=== PATIENT | male | born 1995 ===

== ENCOUNTER 2017-03-29 22:06 | Emergency (ER) | payer SELFPAY ==
[2017-03-29 22:18] VITALS: BP 150/80; PULSE 78; RESP 18; TEMP 98.4; O2SAT 100
[2017-03-29] MEDS ORDERED: Lidocaine 1% Inj (20ml) ONE (22:44)
[2017-03-29] MEDS ORDERED: Lidocaine 1% (10 ml) Inj INFIL STA (22:48)
[2017-03-29] MEDS ORDERED: TDAP Vaccine 0.5 mL Syr IM ONE (22:48)
--- NOTE | 2017-03-29 22:50 | ED PDOC ---
HPI: Wound Care - HPI Time Seen by Provider: 03/29/17 22:20 Chief Complaint (Nursing): Finger,Hand,&Wrist Chief Complaint (Provider): Left 4th digit swelling, cut 2 weeks ago with metal History Per: Patient Exam Limitations: no limitations Onset/Duration Of Symptoms: Days Current Symptoms Are (Timing): Still Present Quality Of Symptoms: Painful Severity: Moderate Pain Scale Rating Of: 5 Additional Complaint(s): Unknown tetanus. PT did not see a provider at time of injury. PT reports increase localized pain and swelling over the last week. Past Medical History Reviewed: Historical Data, Nursing Documentation, Vital Signs Vital Signs: Last Vital Signs Temp 98.4 F 03/29/17 22:16 Pulse 78 03/29/17 22:16 Resp 18 03/29/17 22:16 BP 150/80 03/29/17 22:16 Pulse Ox 100 03/29/17 22:16 - Medical History PMH: No Chronic Diseases - Surgical History Surgical History: No Surg Hx - Family History Family History: States: Unknown Family Hx - Living Arrangements Living Arrangements: With Family - Social History Current smoker - smoking cessation education provided: No Alcohol: None Drugs: Denies - Home Medications Home Medications: Ambulatory Orders Medication Instructions Recorded Amoxicillin/Clavulanate [Augmentin 1 tab PO BID #20 tab 03/29/17 875 MG-125 MG] - Allergies Allergies/Adverse Reactions: Allergies Allergy/AdvReac Type Severity Reaction Status Date / Time No Known Allergies Allergy Verified 03/29/17 22:15 Review of Systems ROS Statement: Except As Marked, All Systems Reviewed And Found Negative Skin: Positive for: Other Physical Exam - Reviewed Nursing Documentation Reviewed: Yes Vital Signs Reviewed: Yes - Physical Exam Appears: Positive for: Well, Non-toxic, No Acute Distress Head Exam: Positive for: ATRAUMATIC, NORMAL INSPECTION, NORMOCEPHALIC Skin: Positive for: Warm. Negative for: Normal Color ((+) soft fluctulant abscess, left posterior 4th digit ) Eye Exam: Positive for: Normal appearance ENT: Positive for: Normal ENT Inspection Neck: Positive for: Normal, Painless ROM Respiratory: Negative for: Accessory Muscle Use Back: Positive for: Normal Inspection Extremity: Positive for: Normal ROM. Negative for: Tenderness, Deformity, Swelling Neurologic/Psych: Positive for: Alert, Oriented - ECG O2 Sat by Pulse Oximetry: 100 Procedure: Wound Repair - Consent Obtained Consent obtained: Verbal - Performed by Performed by: Attending Physician - Indications Indication(s):: Incision wound - Location Location:: Left Finger:: Ring - Anesthetic Technique Anesthetic Technique: Local Local/Regional Anesthetic:: Lidocaine 1% (1cc) - Wound Examination Wound Examination:: Contaminated (Peice of metal 1cm x .25cm came out of abscess ) - Irrigated Irrigated with ml of normal saline: 50cc - Wound repair method Sutures:: Technique (#11 blade ) - Complications Complications: None - Patient tolerated procedure Patient Tolerated Procedure:: Well Disposition - Clinical Impression Clinical Impression: Abscess, Tetanus toxoid vaccination administered at current visit - Patient ED Disposition Is Patient to be Admitted: No Counseled Patient/Family Regarding: Diagnosis, Need For Followup - Disposition Referrals: [facility] [Outside] Disposition: Routine/Home Disposition Time: 23:20 Condition: GOOD Additional Instructions: Warm compresses. Prescriptions: Amoxicillin/Clavulanate [Augmentin 875 MG-125 MG] 1 tab PO BID #20 tab Instructions: Abscess (ED) Print Language: GEORGIAN
--- NOTE | 2017-03-30 08:30 | RAD ---
PROCEDURE: Left ring finger radiographs. HISTORY: r/o FB COMPARISON: None. TECHNIQUE: AP radiograph of the left hand, as well as spot oblique and lateral images of left ring finger were obtained. FINDINGS: LEFT RING FINGER: Left ring finger normal, without fracture of focal lesion. Remainder of the left hand (as seen on the AP view) is grossly unremarkable. No radiopaque foreign body is seen. There appears to be soft tissue swelling and/or laceration in the proximal left 4th finger JOINTS: Normal. SOFT TISSUES: Normal. OTHER FINDINGS: Small bone island seen in the distal radius. IMPRESSION: No evidence of fracture. No evidence of radiopaque foreign body.
== END 2017-03-29 23:22 | disposition home or self-care (01) ==
LOC: H.ER 22:06
DX: L02.512 Cutaneous abscess of left hand (principal)